=== PATIENT | male | born 1980 | race Caucasian/White ===

== ENCOUNTER 2018-04-02 23:31 | Emergency (ER) | payer OTHER ==
[~2018-04-02] VITALS: Ht 182.9 cm; Wt 90.0 kg
[2018-04-02] MEDS ORDERED: haloperidol lactate 5mg/ml inj IM ONE (23:50)
[2018-04-02] MEDS ORDERED: normal saline 1000ML IV soln IVB ONE (23:50)
[2018-04-02] MEDS ORDERED: metoclopramide 5 mg/ml inj IV ONE (23:50)
[2018-04-02] MEDS ORDERED: famotidine/PF 10 mg/ml inj IV ONE (23:55)
[2018-04-02] MEDS ORDERED: pantoprazole 40 MG vial IV ONE (23:55)
[2018-04-02] MEDS ORDERED: ONDA4TAB6 PO (23:58)
[2018-04-03 00:20] LABS: ALBUMIN 3.9 G/DL (3.4-5.0); ANION GAP 11 (8-16); BLOOD UREA NITROGEN 21 MG/DL (7-18); BUN/CREATININE RATIO 17.5 (5.4-32.0); CALCIUM 8.5 MG/DL (8.5-10.1); CHLORIDE 100 MMOL/L (99-107); GLUCOSE 142 MG/DL (70-104); POTASSIUM 3.2 MMOL/L (3.5-5.1); SODIUM 139 MMOL/L (135-145); TOTAL CARBON DIOXIDE 28.5 MMOL/L (24-32); eGFR 68 ML/MIN
[2018-04-03] MEDS ORDERED: potassium Cl 20 mEq SR tablet PO STA (00:25)
[2018-04-03 01:22] VITALS: BP 109/51
== END 2018-04-03 01:38 | disposition home or self-care (01) ==
LOC: ER 23:33
DX: E86.0 Dehydration (principal); K29.00 Acute gastritis without bleeding; E87.6 Hypokalemia; F12.10 Cannabis abuse, uncomplicated; I10 Essential (primary) hypertension; R10.13 Epigastric pain; Z88.5 Allergy status to narcotic agent
CPT/HCPCS: 36415; 80048; 96361; 96372; 96374; 96375; 99284; C9113; J1630; J2765; J3490; J7030